=== PATIENT | male | born 1945 | race Caucasian/White ===

== ENCOUNTER 2018-08-11 06:50 | Inpatient (IN) | payer MEDICARE ==
[~2018-08-11] VITALS: Ht 170.2 cm; Wt 76.2 kg
--- NOTE | ~2018-08-11 | OP ---
[address] [address] OPERATIVE REPORT Name: GYPSYESTHER Room: [address] IN [facility].#: [id number] Admission: 08/22/18 Attend Phys: Zhou Vela Discharge: Date of : 47 Report #: [id number] THIS REPORT FOR: //name// CC: Mayito Pérez DATE OF SERVICE: 08/22/2018 PREOPERATIVE DIAGNOSIS: Advanced degenerative joint disease, right hip. POSTOPERATIVE DIAGNOSIS: Advanced degenerative joint disease, right hip. PROCEDURE: Right total hip arthroplasty. SURGEON: Mayito Ellison DO. SENIOR STRATEGY MANAGER: Zain Jc DO. ESTIMATED BLOOD LOSS: 600 mL with approximately 300 mL return of Cell Saver. COMPLICATIONS: None. DRAINS: None. SPECIMEN REMOVED: None. ORTHOPEDIC IMPLANTS: Biomet total hip arthroplasty system: 1. Size 11 standard offset Taperloc femoral stem. 2. A 54-mm acetabular shell with limited holes. 3. Acetabular screws x 2, both 25 mm in length. 4. A 40-mm high wall polyethylene liner. 5. A 40 mm ceramic head with -3 neck length adapter. CONDITION OF THE PATIENT: Stable to PACU. ANESTHESIA: General. INDICATIONS: The patient is a pleasant 72-year-old male, seen in my clinic regarding right hip pain he has had for quite some time. He has unfortunately failed conservative treatment, including anti-inflammatory medications, activity modification and steroid injections. X-rays were consistent with severe end-stage degenerative joint disease of the right hip. This was interfering with his quality of life and activities of daily living. Due to failed conservative treatment, I discussed the potential benefit of right total hip arthroplasty. I discussed the procedure, risks, benefits, complications and [address] [address] OPERATIVE REPORT Name: BRAD BETANCUR Room: [address] IN [facility]#: [id number] Admission: 08/22/18 Attend Phys: Zohu Vela Discharge: Date of : 47 Report #: [id number] indications in detail with him. Risks discussed include but not limited to infection, neurovascular injury, continued or worsened pain, need for further surgery, DVT, PE and anesthesia complications. Also, leg length discrepancy, dislocation and hardware failure. He did express understanding and wished to proceed with surgery. DESCRIPTION OF PROCEDURE: After consent was obtained, the patient was taken to the operative suite and placed in supine position on the operating room table. He was given the benefit of general anesthesia. All bony prominences were well padded. The right hip was then sterilely prepped and draped in the usual fashion. Preoperative timeout was obtained to confirm the correct patient, procedure and operative site. Surgery began with the standard anterior approach incision, approximately 10 cm in length. Sharp dissection was taken down to the level of tensor fascia. A new knife was used. An incision was made in the fascia and the tensor muscle was reflected off of the undersurface of the fascia. The interval between the tensor muscle and the sartorius was encountered. Deeper dissection exposed the circumflex vessels. These were isolated and pre-treated with Aquamantys, followed by electrocautery. Deeper dissection exposed the indirect head of the rectus. This was reflected off the anterior hip joint capsule with a Dhaliwal. A #9 retractor was placed anteriorly, followed by a #7 superiorly and a #6 inferiorly. The capsule was pretreated with Aquamantys and an anterior capsulectomy was performed. He had a normal-appearing joint effusion. He did have significant eburnation throughout the joint. At this time, the femoral neck cut was made approximately 1 fingerbreadth above the lesser trochanter. The femoral head and neck were removed. He did have end-stage changes of the femoral head. The acetabulum was then exposed. Labrum was excised. Sequential reaming was performed up to a size 53. This gave us a good fit and fill of the acetabulum and good punctate bleeding throughout. The final reaming was done under C-arm visualization. A final size 54 acetabular shell was chosen and impacted in place. Final cut plate was done under C-arm visualization. This had a good solid purchase, noted to be in good version and inclination. The 2 acetabular screws were then placed, both had good purchase. The final high wall polyethylene liner was then impacted in place and locked in place. Attention was then turned to the femur. The hip was gradually externally rotated, extended and adducted while releases were performed. The femoral hook was used to bring the proximal femur up into the wound. This did give us good exposure. Box osteotome was then utilized, followed by rat tail rasp and sequential broaching. We progressed up to a size 11. This gave us a great fit and fill of the proximal femur. Trial reduction was performed with -3 neck length. This gave us near equal leg lengths. All hardware looked good at this point. The trial was then removed. The final size 11 Taperloc femoral stem was [facility] [address] [place] [address] OPERATIVE REPORT Name: BRAD BETANCUR Room: [address] IN [facility].#: [id number] Admission: 08/22/18 Attend Phys: Zhou Vela Discharge: Date of : 47 Report #: [id number] then impacted into place to appropriate depth. Again, this had a good solid fit. Trial reduction was again performed and a -3 neck length was chosen. This was placed on a clean trunnion with 40 mm ceramic head and impacted into place. The hip was then reduced with good reduction maneuver. He was taken through range of motion. There was no subluxation or dislocation noted in all planes. Final x-rays were then taken, both AP and lateral views, noting good position of all hardware. No acute intraoperative complications and equal leg lengths. The wound was then thoroughly irrigated with sterile saline. Ortho cocktail was injected. The tensor fascia was reapproximated with a running Quill suture. The subcutaneous tissue was closed with 2-0 Vicryl in interrupted fashion, followed by a running Monocryl stitch on the skin as well as Dermabond. A sterile dressing was applied in the form of Mepilex, 4 x 4s, ABD pads and Medipore tape. He did tolerate the procedure well, without complications. He was taken to the recovery room in stable condition. All needle and sponge counts were correct x 2 at the end of the procedure. By: 1142 [id number] Ellison DO /roberto
[~2018-08-11 06:50] MED LIST: ACCUPRIL40 MG PO; ASPIR 8181 MG PO; BRILINTA90 MG PO; JAKAFI20 MG PO; LOPRESSOR50 PO; LOVASTAT40 PO; MULTIVITAMINS1 EAC7 PO; NEURONTIN 300300 M1 PO; OMEGA 3 FISH O1 EACH PO; OMEPRAZOLE 20 M20 M1 PO
[2018-08-11 09:14] LABS: HEMATOCRIT 30.3 % (42.0-52.0); HEMOGLOBIN 9.5 gm/dL (14.0-18.0); MCH 28.9 pg (26.0-34.0); MCHC 31.5 g/dL (28.0-37.0); MCV 91.9 fL (80.0-100.0); MPV 8.9 fl. (7.2-11.1); NUCLEATED RBCS 0 /100WBC; PLATELET COUNT* 81 thou/uL (150-400); RDW-CV 21.7 % (10.5-14.5)
[2018-08-11 09:22] LABS: WBC 58.4 thou/uL (4.0-11.0)
[2018-08-11 09:25] LABS: APTT 25.3 Seconds (25.0-31.3); INR 1.1; PROTIME 11.6 Seconds (9.20-11.50)
[2018-08-11 09:26] LABS: ALBUMIN 4.2 g/dL (3.4-5.0); CREATININE 1.2 mg/dL (0.6-1.3); POTASSIUM 3.8 mmol/L (3.5-5.1); TOTAL BILIRUBIN 0.8 mg/dL (<0.1-1.0); TOTAL PROTEIN 7.3 g/dL (6.4-8.2)
[2018-08-11 10:12] LABS: ABSOLUTE BASOPHILS 1.2 thou/uL (0.0-0.2); ABSOLUTE LYMPHOCYTES 47.9 thou/uL (0.8-5.3); ABSOLUTE MONOCYTES 1.2 thou/uL (0.0-1.2); ABSOLUTE NEUTROPHILS 8.2 thou/uL (1.6-8.1)
[2018-08-11 10:13] LABS: PLATELET ESTIMATE DECREASED; POLYCHROMASIA 1+
[2018-08-11 10:14] LABS: LARGE PLATELETS OCCASIONAL; OVALOCYTES 1+; POIKILOCYTOSIS 1+
[2018-08-11 10:15] LABS: MICROCYTES 3+
[2018-08-11 10:35] LABS: ESR (SEDRATE) 17 mm/hr (0-20)
[2018-08-22 08:23] VITALS: BP 142/81
--- NOTE | 2018-08-22 16:06 | NUR ---
PATIENT ARRIVED TO UNIT AT 1305. IV IS PATENT AND INFUSING. PAIN BEING MANAGED WITH IV MEDICATION GIVEN IN PACU. DENIES NAUSEA. TOLERATING DIET. NAT HOSE IN PLACE BILATERALLY. CAP-NO IN PLACE. ICE PACK IN PLACE. PATIENT HAS BEEN ORIENTED TO ROOM. CALL LIGHT IS WITHIN REACH. NURSING WILL CONTINUE TO MONITOR.
--- NOTE | 2018-08-22 18:14 | NUR ---
ALERT AND ORIENTED X4. UP WITH ASSIST WITH WALKER AND GAIT BELT. IV IS PATENT AND INFUSING. PAIN BEING MANAGED WITH PO PAIN MEDICATION. DENIES NAUSEA. UP TO CHAIR THIS AFTERNOON FOR DINNER. TOLERATING DIET. NAT HOSE IN PLACE BILATERALLY. CAP-NO IN PLACE. MEPILEX DRESSING IS C/D/I. VSS ON 2L O2. CALL LIGHT IS WITHIN REACH. HOURLY ROUNDS HAVE BEEN MAINTAINED SINCE ARRIVING TO UNIT. NURSING WILL CONTINUE TO MONITOR.
[2018-08-22 20:00] VITALS: BP 116/60
[2018-08-23] VITALS: BP 115/64
[2018-08-23 04:00] VITALS: BP 120/63
[2018-08-23 04:12] LABS: HEMATOCRIT 26.9 % (42.0-52.0); HEMOGLOBIN 8.5 gm/dL (14.0-18.0)
--- NOTE | 2018-08-23 05:04 | NUR ---
PT A&Ox4. VITALS STABLE. OX 98% ON 2LO2. UP WITH 1 TO BATHROOM, WALKER AND GAITBELT. CAPNO ON. THIGH HIGH BILATERAL TEDS ON. INCISION DRESSING CLEAN, DRY AND INTACT. IV L FA PATENT, INFUSING. PAIN CONTROLLED. CALL LIGHT WITHIN REACH. FALL PRECAUTIONS IN PLACE. HOURLY ROUNDING COMPLETE. WILL CONTINUE TO MONITOR.
[2018-08-23 10:01] VITALS: BP 120/63
[2018-08-23 10:05] VITALS: BP 120/63
[2018-08-23] MEDS ORDERED: OXYCODONE HCL 55 MG PO (10:24)
[2018-08-23] MEDS ORDERED: NORCO 5-325 TA1 EACH PO (10:33)
[2018-08-23] MEDS ORDERED: ELIQUIS2.5 MG PO (10:34)
[2018-08-23] MEDS ORDERED: COLACE100 MG PO (10:35)
--- NOTE | 2018-08-23 11:56 | NUR ---
PATIENT LEFT UNIT AT 1040. ALERT AND ORIENTED X4. UP WITH ASSIST X1 WITH WALKER AND GAIT BELT. IV DC'D. PAIN BEING MANAGED WITH PO PAIN MEDICATION. DENIES NAUSEA. NAT HOSE IN PLACE BILATERALLY. MEPILEX DRESSING C/D/I. ALL PERSONAL ITEMS LEFT WITH PATIENT. DISCHARGE INSTRUCTIONS, PRESCRIPTIONS, AND NEW MEDICATION INFORMATION INFORMATION SENT WITH PATIENT. VSS ON ROOM AIR. HOURLY ROUNDS HAVE BEEN MAINTAINED THROUGHOUT SHIFT. LEFT WITH VIA CAR.
[2018-08-23 11:59] VITALS: BP 120/63
== END 2018-08-23 10:40 | disposition home or self-care (01) | DRG 470 ==
LOC: EDSTATUS 06:50 → M.SUR 06:50 → M.PRE 08-22 06:52 → M.TBA 08-22 07:20 → M.PRE 08-22 10:12 → M.ORTHSURG 08-22 13:05 → M.PRE 08-22 14:59 → M.ORTHSURG 08-23 10:40
PROVIDERS: Orthopaedic Surgery; ADMIT Internal Medicine
PROC: 0SR903Z Replacement of Right Hip Joint with Ceramic Synthetic Substitute, Open Approach (ICD-10-PCS; principal; 2018-08-22)
DX: M16.11 Unilateral primary osteoarthritis, right hip (principal); C91.10 Chronic lymphocytic leukemia of B-cell type not having achieved remission; D75.81 Myelofibrosis; D45 Polycythemia vera; I25.10 Atherosclerotic heart disease of native coronary artery without angina pectoris; K27.9 Peptic ulcer, site unspecified, unspecified as acute or chronic, without hemorrhage or perforation; I35.0 Nonrheumatic aortic (valve) stenosis; K21.9 Gastro-esophageal reflux disease without esophagitis; I10 Essential (primary) hypertension; Z98.84 Bariatric surgery status; Z88.8 Allergy status to other drugs, medicaments and biological substances; Z79.82 Long term (current) use of aspirin; Z79.899 Other long term (current) drug therapy; Z95.5 Presence of coronary angioplasty implant and graft; Z82.49 Family history of ischemic heart disease and other diseases of the circulatory system

== ENCOUNTER 2018-11-06 06:49 | Inpatient (IN) | payer MEDICARE ==
[~2018-11-06] VITALS: Ht 170.2 cm; Wt 74.4 kg
--- NOTE | ~2018-11-06 | CON ---
[address] [address] CONSULTATION Name: BRAD BETANCUR Room: [address] IN ..#: [id number] Admission: 11/06/18 Attend Phys: Gabe Lane MD Discharge: Date of : 47 Report #: [id number] THIS REPORT FOR: //name// CC: Gabe Atwood INPATIENT CONSULTATION CHIEF COMPLAINT: Chest pain. HISTORY OF PRESENT ILLNESS: The patient is a 72-year-old male with a history of coronary artery disease, who presented with epigastric and chest pain. He had cardiac arrest. It was nonradiating. It lasted several minutes before he came in the ER. His ECG demonstrated a sinus rhythm with normal ST segments. The first 2 sets of cardiac troponin levels are negative and he remains asymptomatic. He denies associated symptoms of exertional shortness of breath. He denies palpitations or heart racing. He denies any neuro symptoms of numbness, weakness, visual changes or slurred speech. PAST MEDICAL HISTORY: Significant for coronary artery disease that was diagnosed in preoperative evaluation for elective hip surgery. He apparently underwent PCI at [facility] in 2017; records were not available. He also has a history of valvular heart disease, records are not available. He has hypertension and chronic lymphocytic leukemia. ALLERGIES: HE HAS ALLERGIES TO GEMFIBROZIL. HOME MEDICATIONS: Include Jakafi 20 mg p.o. b.i.d., gabapentin, rosuvastatin 40 mg daily, aspirin 81 mg daily, metoprolol 50 mg daily, quinapril 40 mg daily and [place] 3 fatty acids. PAST SURGICAL HISTORY: He has past surgical history of gastric bypass, hemorrhoidectomy and myelofibrosis with CLL. SOCIAL HISTORY: He is a nonsmoker. He does drink one glass daily. REVIEW OF SYSTEMS: GENERAL: No fevers or chills. PULMONARY: No wheezing or cough. ENDOCRINE: Denies history of diabetes. CARDIOVASCULAR: Positive chest pain. No shortness of breath, no palpitations. NEUROLOGIC: Denies headaches, blurry [place] [address] CONSULTATION Name: BRAD BETANCUR Room: [address]#: [id number] Admission: 11/06/18 Attend Phys: Gabe Lane MD Discharge: Date of : 47 Report #: [id number] GENITOURINARY: No dysuria or hematuria. SKIN: No rashes. PHYSICAL EXAMINATION: VITAL SIGNS: Blood pressure 139/64 and pulse 71. GENERAL: This is a pleasant elderly male who is alert, in no apparent distress. HEENT: Eyes, EOMs intact. No facial asymmetry. NECK: Supple. No jugular venous distention. CARDIOVASCULAR EXAMINATION: Regular. I cannot hear a murmur or S3. LUNGS: Clear to auscultation. EXTREMITIES: Show no peripheral edema. DIAGNOSTIC DATA: Electrocardiogram shows a sinus rhythm. Hemoglobin is 9.8, white blood cell count is 111 and platelet count is 297,000. Sodium is 139, potassium is 4.5, chloride is 105, BUN is 21 and creatinine is 1.5. INR is 1.1. Chest x-ray shows no acute cardiopulmonary process. IMPRESSION AND PLAN: 1. Chest pain. His symptoms are atypical, but he has a history of coronary artery disease. I have arranged for a pharmacologic nuclear stress test if he rules out for an UT. He will continue with medical therapy including beta blockers. 2. Hyperlipidemia. I will continue with his aggressive statin therapy. 3. Valvular heart disease. It appears by physical examination he has aortic valve stenosis. I have arranged for an echocardiogram. We will try to obtain records from [facility]. 4. Hypertension. This is stable. By: 1326 0126Owen Barnhart MD, FACC /nt
[~2018-11-06 06:49] MED LIST changes: +COLACE100 MG PO; +ELIQUIS2.5 MG PO; +NORCO 5-325 TA1 EACH PO; +OXYCODONE HCL 55 MG PO
[2018-11-06 06:56] VITALS: BP 159/79
[2018-11-06 07:22] LABS: HEMATOCRIT 31.9 % (42.0-52.0); HEMOGLOBIN 9.8 gm/dL (14.0-18.0); MCH 26.6 pg (26.0-34.0); MCHC 30.7 g/dL (28.0-37.0); MCV 86.8 fL (80.0-100.0); MPV 9.6 fl. (7.2-11.1); NUCLEATED RBCS 1 /100WBC; PLATELET COUNT* 97 thou/uL (150-400); RBC 3.67 mil/uL (4.50-6.00)
[2018-11-06 07:29] LABS: INR 1.1; PROTIME 11.7 Seconds (9.20-11.50)
[2018-11-06 07:31] LABS: WBC 111.4 thou/uL (4.0-11.0)
[2018-11-06 07:40] LABS: ANION GAP 8 mmol/L (7-16); BUN 21 mg/dL (7-18); CALCIUM 8.9 mg/dL (8.5-10.1); CHLORIDE 105 mmol/L (98-107); CO2 26 mmol/L (21-32); CREATININE 1.5 mg/dL (0.6-1.3); GLUCOSE 140 mg/dL (70-99); POTASSIUM 4.5 mmol/L (3.5-5.1); SODIUM 139 mmol/L (136-145); TROPONIN-I LEVEL <0.06 ng/mL (<0.06)
[2018-11-06 07:42] LABS: ALBUMIN 4.1 g/dL (3.4-5.0); ALKALINE PHOSPHATASE 131 U/L (46-116); LIPASE 95 U/L (73-393); NT-PRO BRAIN NAT PEPTIDE 786 pg/mL (<300); SGOT 25 U/L (15-37); SGPT 33 U/L (30-65); TOTAL BILIRUBIN 0.4 mg/dL (<0.1-1.0); TOTAL PROTEIN 6.9 g/dL (6.4-8.2)
[2018-11-06] MEDS ORDERED: CRESTOR20 MG PO (07:49)
[2018-11-06] MEDS ORDERED: VIAGRA50 MG PO (07:51)
[2018-11-06 09:41] LABS: ABSOLUTE LYMPHOCYTES 100.3 thou/uL (0.8-5.3); ABSOLUTE NEUTROPHILS 11.1 thou/uL (1.6-8.1); PLATELET ESTIMATE DECREASED
[2018-11-06 09:42] LABS: ANISOCYTOSIS 2+; OVALOCYTES 1+
[2018-11-06 10:52] VITALS: BP 124/59
[2018-11-06 11:21] VITALS: BP 139/64
--- NOTE | 2018-11-06 14:11 | EKG ---
[place] [address] ELECTROCARDIOGRAM REPORT Name: BRAD BETANCUR Room: [address] IN [facility]#: [id number] Admission: 11/06/18 Attend Phys: Gabe Lane MD Discharge: Date of : 47 Report #: [id number] THIS REPORT FOR: //name// [facility] ED Test Date: 2018-11-06 Test Time: 06:56:20 Pat Name: BRAD BETANCUR Department: Room: [facility] Gender: M Soc Analyst: ENMA : 1945 Requested By: Tolu Nunez Order Number: [id number] MD: Owen Barnhart Measurements Intervals [place] Rate: 56 P: 41 W[place]: 181 QRS: 4 QRSD: 83 T: 30 QT: 436 QTc: 421 Interpretive Statements Sinus rhythm Atrial premature complex No previous ECG available for comparison Electronically Signed On 11-06-2018 14:11:03 ACETYLENE TORCH BURNER by Owen Barnhart [email or web address] <ELECTRONICALLY SIGNED> By: Owen Barnhart MD, [facility] 11/06/18 1411 [id number] [id number] Owen Barnhart MD, FACC /EPI
[2018-11-06 16:00] VITALS: BP 108/48
[2018-11-06 20:00] VITALS: BP 95/45
[2018-11-07] VITALS: BP 99/56
[2018-11-07 04:00] VITALS: BP 109/59
[2018-11-07 08:00] VITALS: BP 91/53
[2018-11-07 10:46] LABS: ABSOLUTE BASOPHILS 0.4 thou/uL (0.0-0.2); ABSOLUTE LYMPHOCYTES 69.5 thou/uL (0.8-5.3); ABSOLUTE MONOCYTES 0.7 thou/uL (0.0-1.2); BASOPHILS 0.5 %; HEMATOCRIT 29.5 % (42.0-52.0); HEMOGLOBIN 9.2 gm/dL (14.0-18.0); LYMPHOCYTES 87.3 %; MCH 26.7 pg (26.0-34.0); MCHC 31.2 g/dL (28.0-37.0); MCV 85.4 fL (80.0-100.0); MONOCYTES 0.9 %; MPV 8.4 fl. (7.2-11.1); NUCLEATED RBCS 0 /100WBC; PLATELET COUNT* 87 thou/uL (150-400); POLYS 11.3 %; RBC 3.45 mil/uL (4.50-6.00); RDW-CV 22.3 % (10.5-14.5)
[2018-11-07 10:54] LABS: WBC 79.6 thou/uL (4.0-11.0)
[2018-11-07 11:02] LABS: CALCIUM 8.4 mg/dL (8.5-10.1); CREATININE 1.5 mg/dL (0.6-1.3); MAGNESIUM 1.9 mg/dL (1.8-2.4); POTASSIUM 3.7 mmol/L (3.5-5.1)
[2018-11-07 12:37] LABS: URINE BILIRUBIN NEGATIVE (Negative); URINE BLOOD NEGATIVE (Negative); URINE CLARITY CLEAR; URINE COLOR YELLOW; URINE GLUCOSE-RANDOM NEGATIVE (Negative); URINE KETONES NEGATIVE (Negative); URINE LEUKOCYTES-REFLEX NEGATIVE (Negative); URINE NITRITE-REFLEX NEGATIVE (Negative); URINE PROTEIN NEGATIVE (Negative); URINE UROBILINOGEN 0.2 E.U./dl (0.2-1.0)
[2018-11-07 13:06] VITALS: BP 100/55
--- NOTE | 2018-11-07 13:41 | 2DMMODE ---
[place] [address] 2 D/M-MODE ECHOCARDIOGRAM Name: BRAD BETANCUR Room: [address] IN .R.#: [id number] Admission: 11/06/18 Attend Phys: Gabe Lane, Discharge: Date of : 47 Date of Service: 11/07/18 1341 Report #: [id number] THIS REPORT FOR: //name// APPROVED REPORT Study performed: 11/07/2018 11:41:55 EXAM: Comprehensive 2D, Doppler, and color-flow Echocardiogram Patient Location: Bedside BSA: 1.86 HR: 71 bpm BP: 109/59 mmHg Other Information Study Quality: Good Indications Non STEMI 2D Dimensions IVSd: 12.06 (7-11mm) LVOT Diam: 20.83 (18-24mm) LVDd: 47.50 mm PWd: 10.96 (7-11mm) Ascending Ao: 30.03 (22-36mm) LVDs: 28.99 (25-40mm) Aortic Root: 31.25 mm Volumes Left Atrial Volume (Systole) LA ESV Index: 40.30 mL/m2 Aortic Valve AoV Peak [place].: 3.28 m/s AO Peak Gr.: 43.01 mmHg LVOT Max P.68 mmHg AO Mean Gr.: 25.08 mmHg LVOT Mean P.66 mmHg LVOT Max V: 1.08 m/s AO V2 VTI: 56.77 cm LVOT Mean V: 0.76 m/s JUAN (VTI): 1.21 cm2 LVOT V1 VTI: 20.21 cm AI [place]: 1.41 m/s2 AI PHT: 548.41 ms Mitral Valve E/A Ratio: 0.97 MV Decel. Time: 306.65 ms MV E Max Fransisco.: 0.77 m/[place] [address] 2 D/M-MODE ECHOCARDIOGRAM Name: BRAD BETANCUR Room: [address] IN ..#: [id number] Admission: 11/06/18 Attend Phys: Gabe Lane, Discharge: Date of : 47 Date of Service: 11/07/18 1341 Report #: [id number] MV PHT: 88.93 ms MVA (PHT): 2.47 cm2 TDI E/Lateral E': 7.70 E/Medial E': 5.92 Medial E' Fransisco.: 0.13 m/s Lateral E' Fransisco.: 0.10 m/s Pulmonary Valve PV Peak Fransisco.: 1.04 m/s PV Peak Gr.: 4.32 mmHg Tricuspid Valve RAP Estimate: 15.00 mmHg TR Peak Gr.: 36.75 mmHg RVSP: 51.75 mmHg PA Pressure: 51.75 mmHg Left Ventricle The left ventricle is normal size. There is normal LV segmental wall motion. There is normal left ventricular wall thickness. Left ventricular systolic function is normal. The left ventricular ejection fraction is within the normal range. LVEF is 60%. Right Ventricle The right ventricle is normal size. The right ventricular systolic function is normal. Atria Left atrium is mildly dilated. The right atrium size is normal. Aortic Valve Moderate aortic valve sclerosis. Mild aortic regurgitation. Moderate aortic stenosis. Mitral Valve The mitral valve is normal in structure. Mild mitral regurgitation. No evidence of mitral valve stenosis. Tricuspid Valve The tricuspid valve is normal in structure. Trace tricuspid regurgitation. Pulmonic Valve The pulmonary valve is normal in structure. There is no pulmon[place] [address] 2 D/M-MODE ECHOCARDIOGRAM Name: BRAD BETANCUR Room: [address] IN [facility]#: [id number] Admission: 11/06/18 Attend Phys: Gabe Lane, Discharge: Date of : 47 Date of Service: 11/07/18 1341 Report #: [id number] Great Vessels The aortic root is normal in size. IVC is dilated. Pericardium There is no pericardial effusion. <Conclusion> The left ventricle is normal size. There is normal left ventricular wall thickness. Left ventricular systolic function is normal. The left ventricular ejection fraction is within the normal range. LVEF is 60%. The right ventricle is normal size. Left atrium is mildly dilated. Moderate aortic valve sclerosis. Mild aortic regurgitation. Moderate aortic stenosis. The mitral valve is normal in structure. Mild mitral regurgitation. The tricuspid valve is normal in structure. IVC is dilated. There is no pericardial effusion. There is normal LV segmental wall motion. <ELECTRONICALLY SIGNED> By: Brad Corbett MD, FACC 11/07/18 1341 1341 1341 Brad Corbett MD, FACC /INF
[2018-11-07 16:20] VITALS: BP 116/53
--- NOTE | 2018-11-07 18:17 | CARDNUC ---
[place] [address] CARDIAC NUCLEAR IMAGING REPORT Name: BRAD BETANCUR Room: [address] IN [facility]#: [id number] Admission: 11/06/18 Attend Phys: Gabe Lane, Discharge: Date of : 47 Date of Service: 11/07/18 1817 Report #: [id number] THIS REPORT FOR: //name// APPROVED REPORT Study performed: 11/06/2018 13:21:00 Indication: Chest pain Patient Location: In-Patient Room #: 225 Stress Tech: Michelle Valladares Stress Nurse: Laurel Streeter RN Ht: 5 ft 7 in Wt: 164 lbs BSA: 1.86 m2 BMI: 25.68 Medical History Medical History: Angina, Hyperlipidemia, HTN, CAD s/p stent, Chronic Lymphocytic Luekemia, SOB. Medications: Atorvastatin, lovenox, Metoprolol, ASA 81 Mg, Lisinopril, NTG. Allergies: Gemfibrozil. Cardiac Risk Factors: Age, HTN, Hyperlipidemia, SOB. Previous Cardiac Procedures: PCI Pretest Chest Pain Characteristics: No chest pain Exercise History: Indeterminate Physical Disabilities: Knee/Back pain, weak, unsteady. Meds Held (24 hrs): Metoprolol, NTG. Resting Data Rest SPECT myocardial perfusion imaging was performed in supine position 30 minutes following the intravenous injection of 11.0 mCi of Tc-99m Sestamibi. Time of rest injection: 15:00 The images were gated to evaluate regional wall motion and calculate left ventricular ejection fraction. Administration Route: IV Administration Site: Right Arm Pharmacologic Stress Pharmacologic stress test was performed by injecting Regadenoson 0.4 mg IV push over 10-15 seconds immediately followed by the intravenous injection of 33.8 mCi of Tc-99m Sestamibi. Time of stress injection: 16:50 Administration Route: [place] [address] CARDIAC NUCLEAR IMAGING REPORT Name: BRAD BETANCUR Room: [address] IN [facility]#: [id number] Admission: 11/06/18 Attend Phys: Gabe Lane, Discharge: Date of : 47 Date of Service: 11/07/18 1817 Report #: [id number] Administration Site: Right Arm Heart Rate at time of stress injection: 107 bpm. Gated Stress SPECT was performed 45 minutes after stress injection. The images were gated to evaluate regional wall motion and calculate left ventricular ejection fraction. Prone imaging was performed. Stress Test Details Stress Test: Pharmacologic stress testing performed using 0.4 mg of regadenoson per 5 mL given IV over 10 seconds. Reason for pharmacologic stress test: physical limitation, knee and back pain, weak, unsteady.. HR Max Heart Rate (APMHR): 149 bpm Resting HR: 85 bpm Target HR (85% APMHR): 126 bpm Max HR Achieved: 115 bpm % of APMHR: 77 Recovery HR: 108 bpm BP Resting BP: 114/63 mmHg Max BP: 99/61 mmHg Recovery BP: 120/66 mmHg ECG Resting ECG: Sinus Rhythm Stress ECG: Sinus Rhythm ST Change: Horizontal ST depression Maximum ST Deviation: 0.5 mm Arrhythmia: VPC's Recovery ECG: Sinus Rhythm Recovery ST Change: Horizontal ST depression Recovery ST Deviation: 0.5 mm Recovery Arrhythmia: VPC Clinical Reason for Termination: Completed protocol Stress Symptoms: Lightheaded, Numbness in hands. Exercise duration: 0 min 0 sec Exercise capacity: 1.00 METs The patient tolerated Lexiscan infusion without significant symptoms. Nurse Comments 72 year old male inpatient presented with recent HX of CP and SOA. Patient reported having knee and back pain [place] [address] CARDIAC NUCLEAR IMAGING REPORT Name: BRAD BETANCUR A Room: [address]#: [id number] Admission: 11/06/18 Attend Phys: Gabe Lane, Discharge: Date of : 47 Date of Service: 11/07/18 1817 Report #: [id number] Patient tolerated sitting Lexiscan well. Recovery unremarkable. Patient taken via wheelchair by staff to Nuclear Medicine for images. Patient stable with no complaints at that time. Stress ECG Conclusion The baseline 12-lead EKG shows sinus rhythm with no significant ST or T wave abnormality. EKGs during and post Lexiscan show 0.[address] segment depression that is persistent throughout recovery. There were occasional premature ventricular complexes noted. Study Quality Study: Good Artifact: Mild Diaphragmatic artifact Study Data At rest, the left ventricular ejection fraction was 63%.. Post stress, the left ventricular ejection was 73%.. TID = 1.09. Perfusion Myocardial perfusion images obtained in the supine position at rest and post Lexiscan stress show photopenia involving the inferior wall that resolves with post stress prone imaging suggesting diaphragmatic attenuation artifact. No other significant fixed or reversible defects were identified. Wall Motion Normal left ventricular wall motion. Nuclear Conclusion ECG Findings: negative for ischemia Clinical Findings: negative for ischemia Nuclear Findings: negative for ischemia Exercise Capacity: not assessed Left Ventricular Function: normal Risk Study: low Myocardial perfusion images show no defect to suggest infarct or ischemia. Left ventricular systolic function is normal on gated studies. This is a low risk study. <Conclusion> The baseline 12-lead EKG shows sinus rhythm with no significant ST or T wave abnormality. EKGs during and post Lexiscan show 0.[address] [place] [address] CARDIAC NUCLEAR IMAGING REPORT Name: BRAD BETANCUR Room: [address] IN [facility].#: [id number] Admission: 11/06/18 Attend Phys: Gabe Lane, Discharge: Date of : 47 Date of Service: 11/07/18 1817 Report #: [id number] recovery. There were occasional premature ventricular complexes noted. <ELECTRONICALLY SIGNED> By: Jasmeet Yang MD, FACC 11/07/181816 16 16 Jasmeet Yang MD, FACC /INF
[2018-11-07 20:00] VITALS: BP 146/64
[2018-11-08] VITALS: BP 98/50
[2018-11-08 04:00] VITALS: BP 92/31
[2018-11-08 04:32] LABS: ABSOLUTE BASOPHILS 0.1 thou/uL (0.0-0.2); ABSOLUTE LYMPHOCYTES 47.7 thou/uL (0.8-5.3); ABSOLUTE MONOCYTES 0.8 thou/uL (0.0-1.2); ABSOLUTE NEUTROPHILS 7.3 thou/uL (1.6-8.1); BASOPHILS 0.1 %; EOSINOPHILS 0.1 %; HEMATOCRIT 27.2 % (42.0-52.0); HEMOGLOBIN 8.5 gm/dL (14.0-18.0); LYMPHOCYTES 85.4 %; MCH 26.4 pg (26.0-34.0); MCHC 31.3 g/dL (28.0-37.0); MCV 84.5 fL (80.0-100.0); MONOCYTES 1.4 %; MPV 8.9 fl. (7.2-11.1); NUCLEATED RBCS 0 /100WBC; PLATELET COUNT* 81 thou/uL (150-400); RBC 3.22 mil/uL (4.50-6.00); RDW-CV 22.7 % (10.5-14.5)
[2018-11-08 04:33] LABS: CALCIUM 8.3 mg/dL (8.5-10.1); CREATININE 1.4 mg/dL (0.6-1.3); POTASSIUM 4.2 mmol/L (3.5-5.1)
[2018-11-08 04:40] LABS: ABSOLUTE EOSINOPHILS 0.1 thou/uL (0.0-0.7)
[2018-11-08 04:42] LABS: WBC 55.8 thou/uL (4.0-11.0)
[2018-11-08 08:00] VITALS: BP 91/29
[2018-11-08 11:42] VITALS: BP 100/56
[2018-11-08 16:00] VITALS: BP 156/58
[2018-11-09 00:59] VITALS: BP 111/49
[2018-11-09 05:00] LABS: HEMOGLOBIN 7.9 gm/dL (14.0-18.0); MCH 27.2 pg (26.0-34.0); MCHC 32.7 g/dL (28.0-37.0); MCV 83.2 fL (80.0-100.0); MPV 9.2 fl. (7.2-11.1); NUCLEATED RBCS 0 /100WBC; PLATELET COUNT* 76 thou/uL (150-400); RBC 2.89 mil/uL (4.50-6.00); RDW-CV 22.6 % (10.5-14.5)
[2018-11-09 05:01] VITALS: BP 103/52
[2018-11-09 05:15] LABS: CALCIUM 8.2 mg/dL (8.5-10.1); CREATININE 1.3 mg/dL (0.6-1.3); POTASSIUM 3.9 mmol/L (3.5-5.1)
[2018-11-09 05:16] LABS: WBC 36.9 thou/uL (4.0-11.0)
[2018-11-09 06:54] LABS: ABSOLUTE BASOPHILS 0.4 thou/uL (0.0-0.2); ABSOLUTE LYMPHOCYTES 26.9 thou/uL (0.8-5.3); ABSOLUTE MONOCYTES 0.4 thou/uL (0.0-1.2); ABSOLUTE NEUTROPHILS 9.2 thou/uL (1.6-8.1); ATYPICAL LYMPHS 1 %
[2018-11-09 06:55] LABS: ANISOCYTOSIS 1+; OVALOCYTES 1+; PLATELET ESTIMATE DECREASED; POIKILOCYTOSIS 1+
[2018-11-09 08:10] VITALS: BP 111/55
[2018-11-09 10:32] VITALS: BP 113/57
--- NOTE | 2018-11-09 11:35 | CON ---
[address] [address] CONSULTATION Name: BRAD BETANCUR Room: [address] IN ..#: [id number] Admission: 11/06/18 Attend Phys: Gabe Lane MD Discharge: Date of : 47 Report #: [id number] THIS REPORT FOR: //name// CC: Gabe Atwood DATE OF SERVICE: 11/08/2018 INFECTIOUS DISEASE CONSULTATION ATTENDING PHYSICIAN: Dr. Melo. REASON FOR EVALUATION: Nosocomial fevers. HISTORY OF PRESENT ILLNESS: Chart reviewed, the patient examined. This is a 72-year-old with known chronic lymphocytic leukemia, was admitted through the Emergency Room with complaints of chest related pain. He attributed this to perhaps esophageal-related issues due to eating baked beans. This was a bilateral radiating pain and discomfort about the chest and upper abdomen. Evaluation was otherwise unremarkable. Due to concerns, had chest x-ray which was unrevealing, urinalysis was unremarkable. Initial white count was elevated to 111,000. Differential showed basically 90% lymphocytes or 100,000 lymphocytes. Blood cultures were collected, they are sterile thus far. Due to concerns about possible infectious etiology as a contributing factor, he was started on ceftriaxone. Over the course of the last 24 hours, he had developed high grade temperature elevations, as high as 102.1. It is notable there is somewhat of a ____ on metoprolol, he did note that he really did not appreciate he had fevers until he was made aware of it. On questioning presently, he denies really any discomfort even when specifically on questioning no head and neck complaints, no breathing difficulties, no shortness of breath or cough, no abdominal-related complaints. He had a normal stool. No new onset eruptions, no myalgias or arthralgias. Additionally, he was questioned about possible exposure history, which was not revealing either ALLERGIES: GEMFIBROZIL. CURRENT MEDICATIONS: Include metoprolol, pantoprazole, ceftriaxone, aspirin, acetaminophen, enoxaparin, atorvastatin, gabapentin, lisinopril, multivitamin, nitroglycerin, p.r.n. ondansetron. PAST MEDICAL HISTORY: Included chronic lymphocytic leukemia, history of myelofibrosis, reflux, hypertension, polycythemia vera, does have aortic stenosis, aortic regurgitation, previous gastric bypass surgery. SOCIAL HISTORY: Nonsmoker, [place] [address] CONSULTATION Name: BRAD BETANCUR Room: [address] IN [facility]#: [id number] Admission: 11/06/18 Attend Phys: Gabe Lane MD Discharge: Date of : 47 Report #: [id number] FAMILY HISTORY: Noncontributory. REVIEW OF SYSTEMS: Otherwise noted. A 10-point review of systems was otherwise unremarkable and noted above in history of present illness. PHYSICAL EXAMINATION: GENERAL: Pleasant, alert, cooperative, appears somewhat chronically ill, mildly undernourished. VITAL SIGNS: T-max earlier 102.1, more recently 98; pulse 75; respirations 20; blood pressure 100/56. SKIN: Warm, dry, no rashes. HEENT: Normocephalic. Extraocular muscles intact. NECK: Supple. LUNGS: Clear to auscultation. HEART: Regular. Does have systolic murmur. ABDOMEN: Soft and nontender. There are no peritoneal signs. EXTREMITIES: Lower extremities without significant edema. GENITOURINARY: Deferred. RECTAL: Deferred. LABORATORY DATA: Blood cultures sterile thus far. Most recent electrolytes: Sodium 137, potassium 4.2, chloride 104, bicarbonate is 25, anion gap of 8, BUN and creatinine 21 and 1.4, glucose of 116. Estimated GFR of 50. Chest x-ray initially was otherwise unremarkable, repeat showed a mild increase in right basilar density, there is question of atelectasis. Echo, moderate aortic stenosis. Urinalysis was unremarkable. Lactic acid 1.4. Troponin less than 0.06. Initial CBC: White count of 111,000, 90% lymphocytes, smudge cells are evident. Repeat white count of 55.8 with 48,000 lymphocytes. ASSESSMENT AND PLAN: Febrile illness. The patient presented with chest-related discomfort, ____ exclude pneumonitis. He seemed to respond pretty quickly as white count suggested set at a lower level. He was unaware of the fevers, which raised question of adverse or drug-related hyperthermia. Continue the ceftriaxone for the moment. We will see how he does clinically. Monitor expectantly. At this point, I do not see any focus of pyogenic infection. Certainly intercurrent viral etiology is playing a role that is fairly typically self-limited. <ELECTRONICALLY SIGNED> By: Brady Ware MD 11/09/18 1135 1202 [id number] Ware MD /nt
[2018-11-09 12:00] VITALS: BP 99/62
[2018-11-09] MEDS ORDERED: LOPRESSOR25 PO (12:03)
[2018-11-09] MEDS ORDERED: LISINOPRIL10 MG PO (12:04)
[2018-11-09 13:28] VITALS: BP 99/62
[2018-11-09] MEDS ORDERED: CEFUROXIME500 MG PO (13:42)
== END 2018-11-09 14:09 | disposition home or self-care (01) | DRG 392 ==
LOC: M.ERS 06:49 → M.2W 08:07 → M.TBA-ER 08:07 → M.2W 11:15
PROVIDERS: Emergency Medicine; Family Medicine
DX: K21.9 Gastro-esophageal reflux disease without esophagitis (principal); C91.10 Chronic lymphocytic leukemia of B-cell type not having achieved remission; I38 Endocarditis, valve unspecified; I25.10 Atherosclerotic heart disease of native coronary artery without angina pectoris; N18.3 Chronic kidney disease, stage 3 (moderate); I95.2 Hypotension due to drugs; I12.9 Hypertensive chronic kidney disease with stage 1 through stage 4 chronic kidney disease, or unspecified chronic kidney disease; I35.0 Nonrheumatic aortic (valve) stenosis; E78.5 Hyperlipidemia, unspecified; Z98.84 Bariatric surgery status; Z86.74 Personal history of sudden cardiac arrest; Z95.5 Presence of coronary angioplasty implant and graft; Z79.82 Long term (current) use of aspirin; Z79.899 Other long term (current) drug therapy; Z88.8 Allergy status to other drugs, medicaments and biological substances; Z82.49 Family history of ischemic heart disease and other diseases of the circulatory system

== ENCOUNTER 2020-03-21 11:26 | Inpatient (IN) | payer MEDICARE ==
[~2020-03-21] VITALS: Ht 170.2 cm; Wt 80.5 kg
--- NOTE | ~2020-03-21 | CON ---
[address] [address] CONSULTATION Name: BRAD BETANCUR Room: [address] IN .R.#: [id number] Admission: 03/21/20 Attend Phys: Leana Pillai MD Discharge: Date of : 47 Report #: [id number] THIS REPORT FOR: //name// cc: En Atwood MD, Richard K. MD ~ THIS REPORT FOR: //name// CC: Leana Atwood DATE OF SERVICE: 03/22/2020 REASON FOR CONSULTATION: Myelofibrosis. REQUESTING PHYSICIAN: Leana Pillai MD HISTORY OF PRESENT ILLNESS: The patient is a pleasant 74-year-old man with history of JAK2 mutation positive, myelofibrosis, who is well known to my partner, Dr. Zimmer. The patient was admitted to the hospital with fever and possible pneumonia. He is found to have thrombocytopenia. Hematology consult is requested. He is doing well. He denies shortness of breath, fever. He is on antibiotics and is feeling better. He does not have complaints of abdominal pain. He had an abdominal ultrasound done, which shows possible cholecystitis, although the patient does not have any nausea, vomiting, or abdominal pain. He states that his liver enzymes has been elevated in the past. Abdominal ultrasound was ordered because of elevated liver enzymes. PAST MEDICAL HISTORY: Significant for myelofibrosis, GERD, hypertension, skin cancer, undergoing topical treatment, hyperlipidemia. SOCIAL HISTORY: . at bedside. FAMILY HISTORY: Disregard. REVIEW OF SYSTEMS: CONSTITUTIONAL: Denies recent weight loss. HEENT: No hearing or visual changes. CARDIOVASCULAR: No chest pain. RESPIRATORY: See above. GASTROINTESTINAL: See above. GENITOURINARY: No dysuria. PHYSICAL EXAMINATION: GENERAL: Reveals well-nourished, well-developed man, not in acute distress. VITAL SIGNS: Blood pressure 100/46, heart rate is 60, temperature 98.7, respirations 18[place] [address] CONSULTATION Name: BRAD BETANCUR Room: [address] IN [facility].#: [id number] Admission: 03/21/20 Attend Phys: Leana Pillai MD Discharge: Date of : 47 Report #: [id number] HEENT: Does not reveal thrush. NECK: Supple. HEART: Normal S1, S2. ABDOMEN: Splenomegaly appreciated on abdominal exam. Right upper quadrant exam does not reveal any tenderness. No rebound, no Herbert sign. MENTAL STATUS: Alert and oriented x 3. LABORATORY DATA: White count 7.3, hemoglobin 35.2, platelets 40. BUN 23, creatinine 1.7. Chest x-ray reviewed. ASSESSMENT AND PLAN: Fever. Defer treatment to Dr. Quispe, agree with antibiotics. Myelofibrosis, patient is on Jakafi. Continue Jakafi. Thrombocytopenia. Continue to monitor. Elevated LFTs. The patient states he has had elevated LFTs in the past, which is not unusual for myelofibrosis. I will review patient's office chart for comparison. Thank you very much for allowing me to participate in care of this patient. We will follow the patient with you. By: 1807 2055Evelyn Frazier MD /nt
[~2020-03-21 11:26] MED LIST changes: +CEFUROXIME500 MG PO; +CRESTOR20 MG PO; +LISINOPRIL10 MG PO; +LOPRESSOR25 PO; +VIAGRA50 MG PO
[2020-03-21 11:37] VITALS: BP 107/63
[2020-03-21 11:56] LABS: URINE BILIRUBIN NEGATIVE (Negative); URINE BLOOD NEGATIVE (Negative); URINE CLARITY CLEAR; URINE COLOR YELLOW; URINE GLUCOSE-RANDOM NEGATIVE (Negative); URINE KETONES NEGATIVE (Negative); URINE LEUKOCYTES-REFLEX NEGATIVE (Negative); URINE NITRITE-REFLEX NEGATIVE (Negative); URINE PROTEIN TRACE (Negative)
[2020-03-21 12:19] LABS: HEMATOCRIT 27.5 % (42.0-52.0); HEMOGLOBIN 8.8 gm/dL (14.0-18.0); MCH 28.3 pg (26.0-34.0); MCHC 32.1 g/dL (28.0-37.0); MCV 88.2 fL (80.0-100.0); MPV 9.1 fl. (7.2-11.1); NUCLEATED RBCS 0 /100WBC; PLATELET COUNT* 54 thou/uL (150-400); RBC 3.12 mil/uL (4.50-6.00)
[2020-03-21 12:20] LABS: WBC 82.7 thou/uL (4.0-11.0)
[2020-03-21 12:21] LABS: CALCIUM 7.9 mg/dL (8.5-10.1); CREATININE 1.7 mg/dL (0.6-1.3); POTASSIUM 4.4 mmol/L (3.5-5.1)
[2020-03-21 12:25] LABS: ALBUMIN 3.8 g/dL (3.4-5.0); MAGNESIUM 1.7 mg/dL (1.8-2.4); TOTAL BILIRUBIN 2.2 mg/dL (<0.1-1.0); TOTAL PROTEIN 6.5 g/dL (6.4-8.2)
[2020-03-21 12:31] LABS: BE -5.1 mmol/L (-2 to +3); PCO2 24.7 mmHg (35.0-45.0); PO2 79.7 mmHg (75.0-100.0); pH 7.471 (7.340-7.450)
[2020-03-21 13:03] LABS: ABSOLUTE LYMPHOCYTES 80.2 thou/uL (0.8-5.3); ABSOLUTE MONOCYTES 1.7 thou/uL (0.0-1.2); ABSOLUTE NEUTROPHILS 0.8 thou/uL (1.6-8.1); ANISOCYTOSIS 1+; ATYPICAL LYMPHS 2 %; HYPOCHROMASIA 1+; PLATELET ESTIMATE DECREASED; POIKILOCYTOSIS 1+; POLYCHROMASIA Occasional
[2020-03-21 16:31] VITALS: BP 102/49
--- NOTE | 2020-03-21 16:54 | EKG ---
[place] [address] ELECTROCARDIOGRAM REPORT Name: BRAD BETANCUR Room: [address] IN [facility]#: [id number] Admission: 03/21/20 Attend Phys: Leana Pillai, Discharge: Date of : 47 Date of Service: 03/21/20 1156 Report #: [id number] THIS REPORT FOR: //name// [facility] ED Test Date: 2020-03-21 Test Time: 11:56:51 Pat Name: BRAD BETANCUR Department: Room: [facility] Gender: M Hemodialysis Lab Technician: JOSEFA : 1945 Requested By: Mica Baker Order Number: [id number] Angel MD: Mayito Gracia Measurements Intervals [place] Rate: 92 P: 77 [place]: 160 QRS: 23 QRSD: 85 T: 51 QT: 339 QTc: 420 Interpretive Statements Sinus rhythm Minimal ST depression, lateral leads Compared to ECG 11/06/2018 06:56:20 ST (T wave) deviation now present Atrial premature complex(es) no longer present Electronically Signed On 03-21-2020 16:54:36 CDT by Mayito Gracia [email or web address] <ELECTRONICALLY SIGNED> By: Mayito Gracia MD, [facility] 03/21/20 1654 1156 1156 Mayito Gracia MD, [facility] /EPI
[2020-03-21 20:00] VITALS: BP 105/57
[2020-03-21 23:56] VITALS: BP 98/51
[2020-03-22 04:00] VITALS: BP 93/48
[2020-03-22 04:50] LABS: HEMATOCRIT 22.1 % (42.0-52.0); HEMOGLOBIN 7.3 gm/dL (14.0-18.0); MCH 28.9 pg (26.0-34.0); MCHC 32.9 g/dL (28.0-37.0); MCV 87.8 fL (80.0-100.0); MPV 10.4 fl. (7.2-11.1); RBC 2.51 mil/uL (4.50-6.00); RDW-CV 21.1 % (10.5-14.5)
[2020-03-22 04:59] LABS: WBC 35.2 thou/uL (4.0-11.0)
[2020-03-22 05:07] LABS: ALBUMIN 3.1 g/dL (3.4-5.0); CALCIUM 7.5 mg/dL (8.5-10.1); CREATININE 1.7 mg/dL (0.6-1.3); TOTAL BILIRUBIN 3.8 mg/dL (<0.1-1.0); TOTAL PROTEIN 5.5 g/dL (6.4-8.2)
[2020-03-22 05:50] VITALS: BP 89/49
[2020-03-22 08:30] VITALS: BP 113/61
[2020-03-22 12:15] VITALS: BP 100/46
[2020-03-22 16:10] VITALS: BP 105/56
--- NOTE | 2020-03-22 17:18 | 2DMMODE ---
[place] [address] 2 D/M-MODE ECHOCARDIOGRAM Name: BRAD BETANCUR Room: [address] IN [facility]#: [id number] Admission: 03/21/20 Attend Phys: Leana Pillai, Discharge: Date of : 47 Date of Service: 03/22/20 1718 Report #: [id number] THIS REPORT FOR: cc: En Atwood MD, Richard K. MD Blick, David R. MD [facility] ~ APPROVED REPORT Study performed: 03/22/2020 15:47:48 EXAM: Comprehensive 2D, Doppler, and color-flow Echocardiogram Patient Location: In-Patient Room #: 219 Status: routine BSA: 1.88 HR: 65 bpm Rhythm: NSR Other Information Study Quality: Good Indications Pre-Op 2D Dimensions IVSd: 12.03 (7-11mm) LVOT Diam: 21.69 (18-24mm) LVDd: 47.34 mm PWd: 11.23 (7-11mm) Ascending Ao: 34.87 (22-36mm) LVDs: 31.75 (25-40mm) Aortic Root: 33.52 mm Volumes Left Atrial Volume (Systole) LA ESV Index: 40.80 mL/m2 Aortic Valve AoV Peak Fransisco.: 2.67 m/s AO Peak Gr.: 28.46 mmHg LVOT Max P.66 mmHg AO Mean Gr.: 16.72 mmHg LVOT Mean P.79 mmHg LVOT Max V: 1.38 m/s AO V2 VTI: 58.93 cm LVOT Mean V: 0.89 m/s JUAN (VTI): 1.83 cm2 LVOT V1 VTI: 29.18 cm AI [place]: 2.31 m/s2 [place] [address] 2 D/M-MODE ECHOCARDIOGRAM Name: BRAD BETANCUR Room: [address] IN ..#: [id number] Admission: 03/21/20 Attend Phys: Leana Pillai, Discharge: Date of : 47 Date of Service: 03/22/20 1718 Report #: [id number] AI PHT: 417.98 ms Mitral Valve E/A Ratio: 1.23 MV Decel. Time: 205.12 ms MV E Max Fransisco.: 0.98 m/s MV PHT: 59.49 ms MVA (PHT): 3.70 cm2 TDI E/Lateral E': 7.00 E/Medial E': 7.54 Medial E' Fransisco.: 0.13 m/s Lateral E' Fransisco.: 0.14 m/s Pulmonary Valve PV Peak Fransisco.: 0.95 m/s PV Peak Gr.: 3.64 mmHg Tricuspid Valve RAP Estimate: 5.00 mmHg TR Peak Gr.: 32.16 mmHg RVSP: 37.00 mmHg PA Pressure: 37.00 mmHg Left Ventricle The left ventricle is normal size. There is normal LV segmental wall motion. Mild concentric left ventricular hypertrophy. Left ventricular systolic function is normal. The left ventricular ejection fraction is within the normal range. LVEF is 55-60%. The left ventricular diastolic function is normal. Right Ventricle The right ventricle is normal size. The right ventricular systolic function is normal. Atria Left atrium is mildly dilated. The right atrium size is normal. Aortic Valve Aortic valve is calcified. Mild aortic regurgitation. Mild aortic stenosis. Mitral Valve The mitral valve is normal in structure. Mild mitral regurgitation. No evidence of mitral valve stenosis. [place] [address] 2 D/M-MODE ECHOCARDIOGRAM Name: BRAD BETANCUR A Room: [address]#: [id number] Admission: 03/21/20 Attend Phys: Leana Pillai, Discharge: Date of : 47 Date of Service: 03/22/20 1718 Report #: [id number] The tricuspid valve is normal in structure. Trace tricuspid regurgitation. estimated pa pressure 40 mm hg Pulmonic Valve Pulmonic valve is not well visualized. There is no pulmonic valvular regurgitation. Great Vessels The aortic root is normal in size. IVC is normal in size and collapses >50% with inspiration. Pericardium There is no pericardial effusion. <Conclusion> Mild concentric left ventricular hypertrophy. LVEF is 55-60%. Left atrium is mildly dilated. Mild aortic stenosis. Mild aortic regurgitation. Mild mitral regurgitation. Trace tricuspid regurgitation. estimated pa pressure 40 mm hg <ELECTRONICALLY SIGNED> By: Mayito Gracia MD, FACC 03/22/201717 17 17 Mayito Gracia MD, FACC /INF
[2020-03-22 19:30] VITALS: BP 131/64
[2020-03-23] VITALS (7 sets, daily range): BP systolic 102–162; BP diastolic 47–86
[2020-03-23 02:36] LABS: HEPATITIS B SURFACE AG Negative (Negative)
[2020-03-23 05:24] LABS: HEMATOCRIT 20.2 % (42.0-52.0); MCH 28.8 pg (26.0-34.0); MCHC 33.1 g/dL (28.0-37.0); MCV 87.3 fL (80.0-100.0); MPV 8.6 fl. (7.2-11.1); RBC 2.32 mil/uL (4.50-6.00)
[2020-03-23 05:37] LABS: ALBUMIN 2.9 g/dL (3.4-5.0); CALCIUM 7.7 mg/dL (8.5-10.1); CREATININE 1.6 mg/dL (0.6-1.3); DIRECT BILIRUBIN 1.5 mg/dL (<0.1-0.3); PHOSPHORUS* 2.4 mg/dL (2.5-4.9); POTASSIUM 3.6 mmol/L (3.5-5.1); TOTAL BILIRUBIN 2.3 mg/dL (<0.1-1.0); TOTAL PROTEIN 5.4 g/dL (6.4-8.2); WBC 18.7 thou/uL (4.0-11.0)
[2020-03-23 05:39] LABS: HEMOGLOBIN 6.7 gm/dL (14.0-18.0)
[2020-03-24] VITALS (7 sets, daily range): BP systolic 108–141; BP diastolic 51–74
[2020-03-24 06:03] LABS: HEMATOCRIT 23.2 % (42.0-52.0); HEMOGLOBIN 7.7 gm/dL (14.0-18.0); MCH 28.9 pg (26.0-34.0); MCV 87.5 fL (80.0-100.0); MPV 9.3 fl. (7.2-11.1); NUCLEATED RBCS 0 /100WBC; RBC 2.65 mil/uL (4.50-6.00); RDW-CV 20.1 % (10.5-14.5); WBC 16.4 thou/uL (4.0-11.0)
[2020-03-24 06:13] LABS: CALCIUM 7.9 mg/dL (8.5-10.1); CREATININE 1.5 mg/dL (0.6-1.3); TOTAL BILIRUBIN 1.7 mg/dL (<0.1-1.0); TOTAL PROTEIN 5.6 g/dL (6.4-8.2)
[2020-03-24 06:15] LABS: PLATELET COUNT* 43 thou/uL (150-400)
[2020-03-24 06:46] LABS: ABSOLUTE LYMPHOCYTES 9.5 thou/uL (0.8-5.3); ABSOLUTE MONOCYTES 0.8 thou/uL (0.0-1.2); ABSOLUTE NEUTROPHILS 6.1 thou/uL (1.6-8.1); PLATELET ESTIMATE DECREASED
--- NOTE | 2020-03-24 09:15 | CON ---
[address] [address] CONSULTATION Name: BRAD BETANCUR Room: [address] IN ..#: [id number] Admission: 03/21/20 Attend Phys: Leana Pillai MD Discharge: Date of : 47 Report #: [id number] THIS REPORT FOR: //name// cc: En Atwood MD, Richard K. MD ~ THIS REPORT FOR: //name// CC: Leana Atwood DATE OF SERVICE: 03/22/2020 INFECTIOUS DISEASE CONSULTATION ATTENDING PHYSICIAN: Dr. Pillai. REASON FOR EVALUATION: Febrile illness with non-confirmation of gram-negative bacteremia, the patient with chronic lymphocytic leukemia. HISTORY OF PRESENT ILLNESS: Chart reviewed. The patient examined. This is a 74-year-old with history of myelodysplastic syndrome, chronic lymphocytic leukemia who had fairly abrupt onset of what sounds like rigors, certainly shaking chills, subsequently developed fevers, was noted to be 103 on admission, also progressively markedly encephalopathic. Denies any significant abdominal related complaints. He has not had any antecedent dyspnea or cough. He was evaluated. COVID testing was negative. Urinalysis was otherwise unremarkable. Chest x-ray, felt to have some atelectasis at the bases. Does have an elevated liver function test including AST of 287, ALT of 166. Total bilirubin of 2.2. Lactic acid was 1.9. ABGs on 4 liters showed a pO2 of 79.7. White count markedly elevated consistent with his CLL at 82.7, 95% lymphocytes. Did have a neutropenia of 800. CT of abdomen and pelvis showed severe splenomegaly, gallbladder sludge. Blood cultures now with 1/2 gram-negative burke, empirically dosed with ceftriaxone. He is better today. Denies significant pain as noted above. He is on room air. ALLERGIES: GEMFIBROZIL. CURRENT MEDICATIONS: Include lisinopril, Jakafi, aspirin, ceftriaxone, pantoprazole, metoprolol, atorvastatin, gabapentin. PAST MEDICAL HISTORY: As described above, chronic lymphocytic leukemia, myelofibrosis, reflux, hypertension, aortic valve dysfunction, gastric bypass, has atherosclerotic coronary artery disease. SOCIAL HISTORY: Nonsmoker, occasional ethanol, [place] [address] CONSULTATION Name: BRAD BETANCUR Room: [address] IN [facility]#: [id number] Admission: 03/21/20 Attend Phys: Leana Pillai MD Discharge: Date of : 47 Report #: [id number] FAMILY HISTORY: Noncontributory. REVIEW OF SYSTEMS: Otherwise, 10-point review of systems is unremarkable. PHYSICAL EXAMINATION: GENERAL: He is alert. He is chronically ill appearing, somewhat undernourished, generally lucid. VITAL SIGNS: Temperature 98.1, pulse 62, respirations 20, blood pressure 113/61. SKIN: Warm, dry, no rashes. HEENT: Normocephalic. Diffuse abrasions over his scalp with eschar. Extraocular muscles are intact. NECK: Supple. LUNGS: Generally clear to auscultation. HEART: Regular. Has a systolic murmur. ABDOMEN: Soft, mildly distended. It is nontender. GENITOURINARY AND RECTAL: Deferred. LABORATORY DATA: Blood culture 1 out 2 with gram-negative rods on this morning, sodium 141, potassium 4.0, chloride 108, bicarbonate is 23, anion gap of 10, BUN and creatinine 23 and 1.7, glucose of 127. AST 161, ALT of 175, total bilirubin elevated at 3.8. CBC, repeat, white count of 35.2, hemoglobin and hematocrit 7.3 and 22.1, platelets of 40. CT as described above. ASSESSMENT AND PLAN: Gram-negative septicemia in a patient with fairly profound immune suppression, has chronic lymphocytic leukemia, myelofibrosis. I suspect a biliary tract source. Imaging showed some sludge. It certainly raises a question of could he have passed a stone. At this point, we will continue empiric therapy with cefepime. We will await culture results, see how he does clinically. The liver function tests are still elevated. <ELECTRONICALLY SIGNED> By: Brady Ware MD 03/24/20 0915 1009 [id number] Ware MD /nt
[2020-03-25 04:22] VITALS: BP 131/62
[2020-03-25 05:48] LABS: ABSOLUTE BASOPHILS 0.1 thou/uL (0.0-0.2); ABSOLUTE LYMPHOCYTES 12.2 thou/uL (0.8-5.3); ABSOLUTE MONOCYTES 0.3 thou/uL (0.0-1.2); ABSOLUTE NEUTROPHILS 2.5 thou/uL (1.6-8.1); EOSINOPHILS 0.3 %; HEMOGLOBIN 7.3 gm/dL (14.0-18.0); LYMPHOCYTES 80.1 %; MCH 29.2 pg (26.0-34.0); MCHC 33.1 g/dL (28.0-37.0); MCV 88.1 fL (80.0-100.0); MONOCYTES 1.9 %; NUCLEATED RBCS 0 /100WBC; POLYS 16.7 %; RDW-CV 20.2 % (10.5-14.5); WBC 15.2 thou/uL (4.0-11.0)
[2020-03-25 06:08] LABS: ALBUMIN 2.9 g/dL (3.4-5.0); CALCIUM 7.7 mg/dL (8.5-10.1); CREATININE 1.4 mg/dL (0.6-1.3); MAGNESIUM 1.7 mg/dL (1.8-2.4); PHOSPHORUS* 2.5 mg/dL (2.5-4.9); POTASSIUM 3.5 mmol/L (3.5-5.1); TOTAL BILIRUBIN 1.5 mg/dL (<0.1-1.0); TOTAL PROTEIN 5.7 g/dL (6.4-8.2)
[2020-03-25 06:09] LABS: PLATELET COUNT* 42 thou/uL (150-400)
[2020-03-25 12:15] VITALS: BP 126/75
[2020-03-25 16:06] VITALS: BP 134/70
[2020-03-25 20:00] VITALS: BP 146/70
[2020-03-26 00:17] VITALS: BP 123/74
[2020-03-26 04:28] VITALS: BP 134/80
[2020-03-26 05:16] LABS: HEMATOCRIT 22.5 % (42.0-52.0); HEMOGLOBIN 7.4 gm/dL (14.0-18.0); MCH 28.8 pg (26.0-34.0); MCV 87.2 fL (80.0-100.0); MPV 9.4 fl. (7.2-11.1); NUCLEATED RBCS 0 /100WBC; PLATELET COUNT* 55 thou/uL (150-400); RBC 2.59 mil/uL (4.50-6.00); WBC 20.4 thou/uL (4.0-11.0)
[2020-03-26 05:26] LABS: ALBUMIN 2.9 g/dL (3.4-5.0); CALCIUM 7.8 mg/dL (8.5-10.1); CREATININE 1.3 mg/dL (0.6-1.3); POTASSIUM 3.4 mmol/L (3.5-5.1); TOTAL BILIRUBIN 1.4 mg/dL (<0.1-1.0); TOTAL PROTEIN 5.9 g/dL (6.4-8.2)
[2020-03-26 07:01] LABS: ABSOLUTE BASOPHILS 0.6 thou/uL (0.0-0.2); ABSOLUTE EOSINOPHILS 0.2 thou/uL (0.0-0.7); ABSOLUTE LYMPHOCYTES 8.4 thou/uL (0.8-5.3); ABSOLUTE MONOCYTES 0.2 thou/uL (0.0-1.2); ANISOCYTOSIS 2+; ATYPICAL LYMPHS 8 %
[2020-03-26 07:02] LABS: PLATELET ESTIMATE DECREASED
[2020-03-26 08:00] VITALS: BP 125/77
[2020-03-26] MEDS ORDERED: CEFUROXIME500 MG PO (11:48)
[2020-03-26 12:02] VITALS: BP 150/79
[2020-03-26 12:03] VITALS: BP 150/79
[2020-03-26 12:59] VITALS: BP 150/79
== END 2020-03-26 13:10 | disposition home or self-care (01) | DRG 871 ==
LOC: M.ERS 11:26 → M.TBA-ER 15:15 → M.2W 15:15
PROVIDERS: Internal Medicine; Personal Emergency Response Attendant; Surgery; ADMIT Internal Medicine; ATTEND Internal Medicine
PROC: 30233N1 Transfusion of Nonautologous Red Blood Cells into Peripheral Vein, Percutaneous Approach (ICD-10-PCS; principal; 2020-03-21)
PROC: 30233R1 Transfusion of Nonautologous Platelets into Peripheral Vein, Percutaneous Approach (ICD-10-PCS; 2020-03-23)
DX: A41.51 Sepsis due to Escherichia coli [E. coli] (principal); G92 Toxic encephalopathy; D75.81 Myelofibrosis; C91.10 Chronic lymphocytic leukemia of B-cell type not having achieved remission; E80.6 Other disorders of bilirubin metabolism; C44.90 Unspecified malignant neoplasm of skin, unspecified; K75.9 Inflammatory liver disease, unspecified; R16.1 Splenomegaly, not elsewhere classified; K21.9 Gastro-esophageal reflux disease without esophagitis; I10 Essential (primary) hypertension; D69.6 Thrombocytopenia, unspecified; D46.9 Myelodysplastic syndrome, unspecified; I25.10 Atherosclerotic heart disease of native coronary artery without angina pectoris; E78.5 Hyperlipidemia, unspecified; R29.810 Facial weakness; I35.0 Nonrheumatic aortic (valve) stenosis; K80.70 Calculus of gallbladder and bile duct without cholecystitis without obstruction; Z20.828 Contact with and (suspected) exposure to other viral communicable diseases; Z98.84 Bariatric surgery status; Z95.5 Presence of coronary angioplasty implant and graft; Z79.82 Long term (current) use of aspirin; Z79.899 Other long term (current) drug therapy; Z88.8 Allergy status to other drugs, medicaments and biological substances